=== PATIENT | female | born 1970 | race Caucasian/White ===

== ENCOUNTER 2017-03-05 10:30 | Emergency (ER) | payer OTHER ==
[~2017-03-05] VITALS: Ht 167.6 cm; Wt 84.4 kg
[~2017-03-05 10:30] MED LIST: MARINA
[2017-03-05 10:33] VITALS: TEMP 36.5; Ht 167.6 cm; Wt 84.4 kg
[2017-03-05] MEDS ORDERED: CYAN250T PO (10:49)
[2017-03-05] MEDS ORDERED: OXYB5TAB74 PO (10:49)
[2017-03-05] MEDS ORDERED: ACET-1311 PO (10:49)
[2017-03-05] MEDS ORDERED: MISCCAP80 PO (10:49)
[2017-03-05] MEDS ORDERED: PRED20TA PO (11:12)
--- NOTE | 2017-03-05 11:15 | EMERGENCY ROOM VISIT NOTE ---
ED Visit Note First contact with patient: 11:00 CHIEF COMPLAINT: "I have poison all over my body" HISTORY OF PRESENT ILLNESS: This 6-year-old female patient presents to the emergency department and states they have had swelling and redness and a rash allover her body. Patient states rash is located on bilateral arms, between her fingers, on her hands, on her legs from her feet to her buttocks, on the front of her neck, and a few lesions on her breast. She states she was exposed to poison daljit over the weekend while she was working in her garden. The rash itches quite a bit. The patient has been using [place] weed soap, which she makes, which has helped minimally. Patient does report a history of poison daljit in the past, however states it has been a significant amount of time since she has needed steroids for the rash. No fever and no URI symptoms. No shortness of breath. No involvement of the mouth, ears, nose, or eyes. REVIEW OF SYSTEMS: A 6 system review of systems was completed with positives and pertinent negatives listed in the HPI. ALLERGIES: None MEDICATIONS: Ditropan PMH: Overactive bladder SOCIAL HISTORY: Lives locally alone. She denies drug, alcohol, tobacco use. PHYSICAL EXAM: Vital Signs: See nurses' notes, vital signs stable. GENERAL: 46- year-old female, in no acute distress, well developed, well nourished. SKIN: There are several linear patches of erythematous lesions, some with small vesicles on bilateral arms, between fingers, on bilateral hands, on bilateral legs, from the ankle to the buttock, on the anterior neck, as well as a few lesions on the breasts. The lips, throat, nose, ears, and eyeballs are not involved. No signs of infection. There is no respiratory distress or cough. ED COURSE: She was seen and evaluated as above. I discussed with her the treatment plan. She was discharged home in good condition. DIAGNOSIS: Rheus dermatitis DIFFERENTIAL DIAGNOSIS: Other contact dermatitis, Herpes Zoster, viral skin exanthem, and others DISCHARGE INSTRUCTIONS & TREATMENT: Prednisone - see discharge instructions for dosing schedule. See your own physician or return here if that is not possible for re-evaluation if the rash does not seem to be improving over the next 4 days. Current/Historical Medications Scheduled Acetaminophen (Tylenol), 650 MG PO UD Cyanocobalamin (Vitamin B-12), 250 MCG PO DAILY Oxybutynin Chloride (Ditropan), 5 MG PO BID Prednisone (Prednisone), 0 PO DAILY Probiotic Product (Probiotic), 2 CAP PO QAM Miscellaneous Medications [Thelma] Allergies Coded Allergies: No Known Allergies (Unverified , 03/05/17) Vital Signs Date Time Temp Pulse Resp B/P (MAP) Pulse Ox O2 Delivery O2 Flow Rate FiO2 03/05/17 11:28 82 16 132/71 98 03/05/17 10:33 36.5 86 17 139/89 98 Room Air Departure Information Impression Primary Impression: Allergic contact dermatitis due to plants, except food Dispostion Home / Self-Care Condition GOOD Prescriptions Prednisone (Prednisone) 20 Mg Tab 0 PO DAILY, #18 TAB 3 DAILY FOR 3 DAYS, THEN 2 DAILY FOR 3 DAYS, THEN 1 DAILY FOR 3 DAYS. Prov: Padmini Thorpe PA-C 03/05/17 Referrals No Doctor, Assigned (PCP) Patient Instructions ED Dermatitis Poison [employer] Additional Instructions Take prednisone as directed. Follow-up with your family doctor in 3-5 days if no improvement in rash or itchiness. You may take Benadryl 25-50 mg every 4-6 hours for itchiness. Return to the emergency department or follow-up sooner with your family doctor if you experience increased redness, purulent drainage, increased pain, headaches, chills, fever, nausea, and other symptoms we discussed.
[2017-03-05 11:28] VITALS: BP 132/71; PULSE 82; O2SAT 98
== END 2017-03-05 11:25 | disposition home or self-care (01) ==
LOC: C.EDB 10:31 → C.EDD 11:25
DX: L23.7 Allergic contact dermatitis due to plants, except food (principal); N32.81 Overactive bladder